=== PATIENT | male | born 1985 | race Caucasian/White ===

== ENCOUNTER 2017-03-02 00:11 | Emergency (ER) | payer OTHER ==
[2017-03-02 00:25] VITALS: BP 132/83
[2017-03-02] MEDS ORDERED: DIPHENHYDRAMINE HCL 25 MG CAPSULE PO ONE (01:17)
[2017-03-02] MEDS ORDERED: DEXAMETHASONE 4 MG TABLET PO ONE (01:17)
--- NOTE | 2017-03-02 01:17 | ER Document Report ---
ED Allergic Reaction - General Chief Complaint: Allergic Reaction Stated Complaint: SKIN PROBLEMS Time Seen by Provider: 03/02/17 01:09 Notes: The patient is a 31-year-old male who presents with a diffuse pruritic rash after he ate seared tuna salad tonight that he cooked at home. His girlfriend also in the ER with similar symptoms. He took 25 mg Benadryl prior to arrival. He has had seared tuna in the past without any reactions. He denies difficulty swallowing, wheezing, trouble breathing, nausea, vomiting or mouth swelling. TRAVEL OUTSIDE OF THE [place] IN LAST 30 DAYS: No - Related Data Allergies/Adverse Reactions: No Known Allergies Allergy (Verified 03/02/17 01:22) Home Medications: Current Home Medications Pantoprazole Sodium 1 tab PO DAILY 03/02/17 [History] Past Medical History - General Information source: Patient - Social History Smoking Status: Unknown if Ever Smoked Family History: Reviewed & Not Pertinent Patient has suicidal ideation: No Patient has homicidal ideation: No Renal/ Medical History: Denies: Hx Peritoneal Dialysis Past Surgical History: Reports: Hx Inguinal Hernia - Immunizations Hx Diphtheria, Pertussis, Tetanus Vaccination: Yes Review of Systems - Review of Systems Notes: REVIEW OF SYSTEMS: CONSTITUTIONAL: -fevers, -chills EENT: -eye pain, -difficulty swallowing, -nasal congestion CARDIOVASCULAR:-chest pain, -syncope. RESPIRATORY: -cough, -SOB GASTROINTESTINAL: -abdominal pain, -nausea, -vomiting, -diarrhea GENITOURINARY: -dysuria, -hematuria MUSCULOSKELETAL: -back pain, -neck pain SKIN: +diffuse rash HEMATOLOGIC: -easy bruising or bleeding. LYMPHATIC: -swollen, enlarged glands. NEUROLOGICAL: -altered mental status or loss of consciousness, -headache, - neurologic symptoms PSYCHIATRIC: -anxiety, -depression. ALL OTHER SYSTEMS REVIEWED AND NEGATIVE. Physical Exam - Vital signs Vitals: Temp Pulse Resp BP Pulse Ox 97.7 F 90 18 132/83 H 97 03/02/17 00:21 03/02/17 00:21 03/02/17 00:21 03/02/17 00:21 03/02/17 00:21 - Notes Notes: PHYSICAL EXAMINATION: GENERAL: Well-appearing, well-nourished and in no acute distress. HEAD: Atraumatic, normocephalic. EYES: Pupils equal round and reactive to light, extraocular movements intact, sclera anicteric, conjunctiva are normal. ENT: nares patent, oropharynx clear without exudates. Moist mucous membranes. NECK: Normal range of motion, supple without lymphadenopathy LUNGS: Breath sounds clear to auscultation bilaterally and equal. No wheezes rales or rhonchi. HEART: Regular rate and rhythm without murmurs ABDOMEN: Soft, nontender, normoactive bowel sounds. No guarding, no rebound. No masses appreciated. EXTREMITIES: Normal range of motion, no pitting or edema. No cyanosis. NEUROLOGICAL: Cranial nerves grossly intact. Normal speech, normal gait. Normal sensory and motor exams. PSYCH: Normal mood, normal affect. SKIN: Diffuse, urticarial rash Course - Re-evaluation Re-evalutation: Patient has no evidence of anaphylaxis at this time. Because his has similar symptoms after seared tuna, he most likely has scombroid poisoning. Will treat him with Benadryl and steroids with return precautions. - Vital Signs Vital signs: Temp Pulse Resp BP Pulse Ox 97.7 F 90 18 132/83 H 97 03/02/17 00:21 03/02/17 00:21 03/02/17 00:21 03/02/17 00:21 03/02/17 00:21 Discharge - Discharge Clinical Impression: Scombroid fish poisoning Qualifiers: Encounter type: initial encounter Injury intent: accidental or unintentional Qualified Code(s): T61.11XA - Scombroid fish poisoning, accidental ( unintentional), initial encounter Condition: Good Disposition: HOME, SELF-CARE Additional Instructions: Continue Benadryl 50 mg every 6 hours. Return to the ER if you notice any worsening swelling or difficulty breathing. Scromboid Fish Poisoning Scromboid poisoning occurs when you eat fish meat containing a toxin. The toxin forms when raw fish of the tuna and mackerel family sits in a warm environment. The toxin gives the fish a peppery taste. About 30 minutes after eating the fish, symptoms start. These include pounding headache, flushing, rapid palpitations, lightheadedness, and shortness of breath. Some patients may also have vomiting, diarrhea, abdominal pain, hives, or wheezing. We treat scromboid poisoning with antihistamines. Adrenaline and IV fluids may be needed for more severe cases. If it's early, we "pump" the stomach to remove any remaining fish. Return if there's increasing shortness of breath, severe weakness, confusion, repeated vomiting, or any other sign of worsening condition.
== END 2017-03-02 01:45 | disposition home or self-care (01) ==
LOC: ER 00:11
DX: T61.11XA Scombroid fish poisoning, accidental (unintentional), initial encounter (principal)
CPT/HCPCS: 99283